=== PATIENT | male | born 1960 | race Caucasian/White ===

== ENCOUNTER 2017-12-25 20:02 | Emergency (ER) | payer SELFPAY ==
[~2017-12-25] VITALS: Ht 180.3 cm; Wt 113.0 kg
[2017-12-25] VITALS (7 sets, daily range): BP systolic 187–230; BP diastolic 88–116; PULSE 74–89; RESP 16–20; TEMP 98.4; O2SAT 95–100
--- NOTE | 2017-12-25 21:25 | PD ---
HPI Chief Complaint: Hypertension Time Seen by Provider: 21:21 Travel History International Travel<30 days: No Contact w/Intl Traveler<30days: No Traveled to known affect area: No History of Present Illness HPI The patient is a 37-year-old male that states he has had high blood pressure in the 250/130 range for approximately 10 years. He has not seen any one for it, he does not have a primary care physician. In the last few weeks he has been experiencing pressure in the head, shortness of breath and heart fluttering. He denies any syncopal or near syncopal spells or chest pain. He denies any focal neurologic change. [facility] Past Medical History Hypertension: Yes ?: Not Social History Alcohol Use: No Tobacco Use: No Substance Use: No Allergies-Medications (Allergen,Severity, Reaction): Coded Allergies: No Known Allergies (Unverified , 12/25/17) Reported Meds & Prescriptions Reported Meds & Active Scripts Active Lisinopril 20 Mg Tab 20 Mg PO DAILY Review of Systems Except as stated in HPI: all other systems reviewed are Neg Physical Exam Narrative GENERAL: The patient is alert, oriented 3, anxious in minimal apparent distress with his head tightness. His blood pressure is 230/113 but the rest of the vital signs are normal. SKIN: Focused skin assessment warm/dry. HEAD: Atraumatic. Normocephalic. EYES: Pupils equal and round. No scleral icterus. No injection or drainage. ENT: No nasal bleeding or discharge. Mucous membranes pink and moist. NECK: Trachea midline. No JVD. CARDIOVASCULAR: Regular rate and rhythm. No murmur appreciated. RESPIRATORY: No accessory muscle use. Clear to auscultation. Breath sounds equal bilaterally. GASTROINTESTINAL: Abdomen soft, non-tender, nondistended. Hepatic and splenic margins not palpable. No guarding or rebound is present. MUSCULOSKELETAL: No obvious deformities. No clubbing. No cyanosis. No edema. NEUROLOGICAL: Awake and alert. No obvious cranial nerve deficits. Motor grossly within normal limits. Normal speech. PSYCHIATRIC: Appropriate mood and affect; insight and judgment normal. Data Data Last Documented VS Vital Signs Date Time Temp Pulse Resp B/P (MAP) Pulse Ox O2 Delivery O2 Flow Rate FiO2 12/25/17 22:53 77 16 187/90 (122) 100 Room Air 12/25/17 20:57 98.4 Orders Orders Electrocardiogram (12/25/17 21:25) Complete Blood Count With Diff (12/25/17 21:25) Comprehensive Metabolic Panel (12/25/17 21:25) Troponin I (12/25/17 21:25) B-Type Natriuretic Peptide (12/25/17 21:25) Lipase (12/25/17 21:25) Hydralazine Inj (Apresoline Inj) (12/25/17 21:30) Lisinopril (Prinivil) (12/25/17 22:15) Potassium Chloride (Kcl) (12/25/17 22:30) Labs Laboratory Tests Test 12/25/17 21:40 12/25/17 22:10 Blood Urea Nitrogen 9 MG/DL Creatinine 1.30 MG/DL Random Glucose 120 MG/DL Total Protein 7.7 GM/DL Albumin 3.4 GM/DL Calcium Level 7.9 MG/DL Alkaline Phosphatase 94 U/L Aspartate Amino Transf (AST/SGOT) 36 U/L Alanine Aminotransferase (ALT/SGPT) 26 U/L Total Bilirubin 0.3 MG/DL Sodium Level 137 MEQ/L Potassium Level 3.9 MEQ/L Chloride Level 102 MEQ/L Carbon Dioxide Level 27.8 MEQ/L Anion Gap 7 MEQ/L Estimat Glomerular Filtration Rate 57 ML/MIN Troponin I LESS THAN 0.02 NG/ML B-Type Natriuretic Peptide 68 PG/ML Lipase 163 U/L White Blood Count 8.8 TH/MM3 Red Blood Count 5.75 MIL/MM3 Hemoglobin 16.5 GM/DL Hematocrit 46.4 % Mean Corpuscular Volume 80.7 FL Mean Corpuscular Hemoglobin 28.6 PG Mean Corpuscular Hemoglobin Concent 35.5 % Red Cell Distribution Width 12.9 % Platelet Count 241 TH/MM3 Mean Platelet Volume 9.4 FL Neutrophils (%) (Auto) 56.7 % Lymphocytes (%) (Auto) 28.0 % Monocytes (%) (Auto) 10.1 % Eosinophils (%) (Auto) 2.4 % Basophils (%) (Auto) 2.8 % Neutrophils # (Auto) 5.0 TH/MM3 Lymphocytes # (Auto) 2.5 TH/MM3 Monocytes # (Auto) 0.9 TH/MM3 Eosinophils # (Auto) 0.2 TH/MM3 Basophils # (Auto) 0.2 TH/MM3 CBC Comment DIFF FINAL Differential Comment MDM Medical Decision Making Medical Screen Exam Complete: Yes Emergency Medical Condition: Yes Medical Record Reviewed: Yes Interpretation(s) The CBC is normal. The complete metabolic profile shows a GFR of 57 and calcium 7.9 but is otherwise unremarkable. The troponin I is normal. The lipase is normal. EKG shows sinus rhythm with a rate of [address] elevation or depression. Differential Diagnosis Noncompliance to medical follow-up, hypertension, electrolyte disorder, acute coronary syndrome, pancreatitis Narrative Course It is now 11:25 PM and the blood pressure is 187/90. The patient feels much better now on wants to go home. He is extremely anxious to go home and states that he will follow up with the primary care physician to adjust his blood pressure. Patient does have noncompliance to medical follow-up. He was aware that his blood pressure has been elevated for many years but still did not follow-up with a physician. He needs to do this to adjust his blood pressure. He finally came to the emergency department when he was symptomatic and left as soon as his symptoms subsided. Diagnosis Primary Impression: Hypertension Additional Impression: Noncompliance Additional Instructions: As we discussed, it is extremely important to follow-up with a primary care physician to adjust your blood pressure. The lisinopril is only a temporary drug and is probably not adequate for you. It is 1 tablet daily. Scripts Lisinopril (Lisinopril) 20 Mg Tab 20 MG PO DAILY, #30 TAB 0 Refills Prov: Ted Melton MD 12/25/17 Disposition: 01 DISCHARGE HOME Condition: Stable Ted Melton MD Dec 25, 2017 21:25
[2017-12-25] MEDS ORDERED: hydrALAZINE HCL 20 MG/ML VIAL IV PUSH ONE (21:30)
[2017-12-25 22:00] LABS: CHLORIDE 102 MEQ/L (98-107); SODIUM (NA) 137 MEQ/L (136-145)
[2017-12-25 22:03] LABS: CALCIUM 7.9 MG/DL (8.5-10.1)
[2017-12-25 22:04] LABS: ALBUMIN 3.4 GM/DL (3.4-5.0); BICARBONATE 27.8 MEQ/L (21.0-32.0); GLUCOSE,RANDOM 120 MG/DL (74-106)
[2017-12-25 22:07] LABS: ALT (GPT) 26 U/L (12-78); GLOMERULAR FILTRATION RATE 57 ML/MIN (>89)
[2017-12-25 22:08] LABS: TOTAL BILIRUBIN ADULT 0.3 MG/DL (0.2-1.0)
[2017-12-25 22:10] LABS: ALKALINE PHOSPHATASE 94 U/L (45-117)
[2017-12-25 22:12] LABS: TROPONIN I LESS THAN 0.02 NG/ML (0.02-0.05)
[2017-12-25] MEDS ORDERED: LISINOPRIL 20 MG TAB PO ONE (22:15)
[2017-12-25 22:16] LABS: BASOPHIL # 0.2 TH/MM3 (0-0.2); BASOPHIL % 2.8 % (0.0-2.0); EOSINOPHIL # 0.2 TH/MM3 (0-0.4); EOSINOPHIL % 2.4 % (0.0-4.0); HEMATOCRIT 46.4 % (39.0-51.0); HEMOGLOBIN 16.5 GM/DL (13.0-17.0); LYMPHOCYTE # 2.5 TH/MM3 (1.0-4.8); MEAN CELL VOLUME 80.7 FL (80.0-100.0); MEAN CORPUSCULAR HEMOGLOBIN 28.6 PG (27.0-34.0); MEAN CORPUSCULAR HGB CONC 35.5 % (32.0-36.0); MEAN PLATELET VOLUME 9.4 FL (7.0-11.0); MONO % 10.1 % (0.0-8.0); MONOCYTE # 0.9 TH/MM3 (0-0.9); NEUT % 56.7 % (16.0-70.0); PLATELET COUNT 241 TH/MM3 (150-450); RED BLOOD COUNT 5.75 MIL/MM3 (4.50-5.90); RED CELL DISTRIBUTION WIDTH 12.9 % (11.6-17.2); WHITE BLOOD COUNT 8.8 TH/MM3 (4.0-11.0)
[2017-12-25] MEDS ORDERED: POTASSIUM CHLORIDE 20 MEQ CONTROLLED RELEASE TAB PO ONE (22:30)
[2017-12-25 23:02] LABS: BLOOD UREA NITROGEN 9 MG/DL (7-18)
[2017-12-25 23:05] LABS: AST (GOT) 36 U/L (15-37)
[2017-12-25 23:07] LABS: TOTAL PROTEIN 7.7 GM/DL (6.4-8.2)
[2017-12-25] MEDS ORDERED: LISI-515 PO (23:24)
--- NOTE | 2017-12-26 11:32 | EKG ---
Date Performed: 12/25/2017 Time Performed: 21:33:30 PTAGE: 57 years EKG: Sinus rhythm POSSIBLE LEFT ATRIAL ENLARGEMENT NONSPECIFIC T-WAVE ABNORMALITY BORDERLINE ECG NO PREVIOUS TRACING DOCTOR: Rd Perera Interpretating Date/Time 12/26/2017 11:28:35
== END 2017-12-25 23:34 | disposition home or self-care (01) ==
LOC: PHED 20:02
DX: I10 Essential (primary) hypertension (principal); R94.31 Abnormal electrocardiogram [ECG] [EKG]; Z91.19 Patient's noncompliance with other medical treatment and regimen
CPT/HCPCS: 80053; 83690; 83880; 84484; 85025; 93005; 96374; 99284; J0360